=== PATIENT | female | born 1960 | race Caucasian/White ===

== ENCOUNTER 2017-05-17 08:59 | Day surgery (SDC) | payer OTHER ==
[~2017-05-17 08:59] MED LIST: SUCCINYLCHOLINE CHLORIDE 100 MG/5 ML SYG IV
[2017-05-17 09:47] LABS: ADD MAN DIFF? NO
[2017-05-17 09:55] LABS: WHITE BLOOD COUNT 5.5 10^3/ul (4.8-10.8)
[2017-05-17 09:55] LABS: BASOPHIL # 0.1 10^3/ul (0.0-0.1); BASOPHILS % 1.1 % (0.0-2.0); EOSINOPHILS # 0.1 10^3/ul (0.0-0.5); HEMATOCRIT 39.6 % (37.0-47.0); HEMOGLOBIN 13.5 g/dl (12.0-16.0); LYMPHOCYTES # 1.6 10^3/ul (0.8-2.9); LYMPHOCYTES % 29.9 % (15.0-51.0); MEAN CORPUSCULAR HEMOGLOBIN 30.3 pg (29.0-33.0); MEAN CORPUSCULAR HGB CONC 34.1 g/dl (32.0-37.0); MEAN PLATELET VOLUME 10.6 fl (7.4-10.4); MONOCYTE # 0.3 10^3/ul (0.3-0.9); MONOCYTES % 5.1 % (0.0-11.0); NEUTROPHIL # 3.4 10^3/ul (1.6-7.5); NEUTROPHILS % 61.7 % (39.0-77.0); PLATELET COUNT 290 10^3/UL (140-415); RED BLOOD COUNT 4.45 10^6/ul (4.20-5.40); RED CELL DISTRIBUTION WIDTH 11.9 % (11.5-14.5)
[2017-05-17 10:16] LABS: ALANINE AMINOTRANSFERASE 20 IU/L (13-69); ALBUMIN 4.9 g/dl (3.3-4.9); ALBUMIN/GLOBULIN RATIO 1.53; ALKALINE PHOSPHATASE 97 IU/L (42-121); ANION GAP 16 (8-16); ASPARTATE AMINO TRANSFERASE 25 IU/L (15-46); BILIRUBIN,INDIRECT 0.3 mg/dl (0-1.1); BILIRUBIN,TOTAL 0.3 mg/dl (0.2-1.3); CARBON DIOXIDE 27 mmol/L (21-31); CHLORIDE 106 mmol/L (97-110); GLUCOSE 94 mg/dl (70-220); TOTAL PROTEIN 8.1 g/dl (6.1-8.1)
[2017-05-17 10:19] LABS: INR 0.93; PROTIME 12.5 Sec (11.9-14.9)
[2017-05-17 10:20] LABS: PARTIAL THROMBOPLASTIN TIME 31.2 Sec (25.0-35.0)
[2017-05-17 10:21] LABS: BLOOD UREA NITROGEN 14 mg/dl (7-20); CALCIUM 9.7 mg/dl (8.4-10.2); CREATININE 0.76 mg/dl (0.44-1.00); POTASSIUM 3.9 mmol/L (3.5-5.1); SODIUM 145 mmol/L (135-144)
[2017-05-17] MEDS ORDERED: IOHEXOL 300MG/ML 30 ML BTL (11:31)
[2017-05-17] MEDS ORDERED: ROCURONIUM 50 MG INJ (11:41)
[2017-05-17] MEDS ORDERED: PROPOFOL 20 ML (11:41)
[2017-05-17] MEDS ORDERED: LIDOCAINE 2% (SDV) 5 ML INJ (11:41)
[2017-05-17] MEDS ORDERED: FENTAnyl 50 MCG/ML VIAL (11:41)
[2017-05-17] MEDS ORDERED: MIDAZOLAM 1 MG/ML 2 ML INJ (11:42)
== END 2017-05-17 14:25 | disposition home or self-care (01) ==
LOC: GIL 08:59 → SDS 08:59 → GIL 14:25
DX: K80.50 Calculus of bile duct without cholangitis or cholecystitis without obstruction (principal); E78.5 Hyperlipidemia, unspecified
CPT/HCPCS: 43264; 74330; 80053; 84703; 85025; 85610; 85730